=== PATIENT | male | born 1945 | race Caucasian/White ===

== ENCOUNTER 2017-01-17 07:05 | Day surgery (SDC) | payer MEDICARE ==
--- NOTE | 2017-01-21 11:05 | OR ---
ADMIT: 01/17/2017 RM/LOC: [facility] MR#: [id number] [place], [place] [id number] [address] [place] [address] Operative/Delivery Room Report SEX: M AGE: 71 : 1945 SURGERY DATE: 01/17/2017 SURGEON: Master Barrios MD PREOPERATIVE DIAGNOSIS: Umbilical hernia. POSTOPERATIVE DIAGNOSIS: Umbilical hernia. PROCEDURE: Repair of umbilical hernia with 6.4 cm Ventralex mesh. RESPIRATORY ASSISTANT: HIRAL Spears, whose assistance was necessary for tissue retraction. ANESTHESIA: General endotracheal. ESTIMATED BLOOD LOSS: 10 mL. DESCRIPTION OF PROCEDURE: The patient was taken to the operating room and placed supine on the operating room table. General anesthesia was established. The abdomen was prepped and draped in the standard surgical fashion. A curvilinear infraumbilical incision was made in the skin and carried through the subcutaneous tissue of the hernia sac. The hernia sac was carefully dissected away from the overlying umbilical skin. The sac was dissected back to the fascial margins and excised with cautery. The defect measured 1.5 cm. There was evidence of intraabdominal ascites which seemed to be of minimal quantity. Fascial margins were cleaned of overlying fatty tissue. A 6.4 cm Ventralex mesh was placed intraabdominally with good overlap of the defect. This was secured circumferentially with transfascial 0 silk suture. The defect was then also closed primarily overlying the mesh with 0 silk suture. The deep tissue of the umbilical skin was approximated to the repair with 2-0 Vicryl suture. The skin edges were approximated with 4-0 Monocryl in a subcuticular fashion and Dermabond. Local anesthetic was injected and a dressing was applied. Sponge, needle, and instrument counts were correct at the end of the case. The patient tolerated the procedure well and transferred to the recovery area in stable condition. Master Barrios MD/ lou JOB #: [id number] CC: Master Barrios, Attending Physician Rehan Tello, Family Physician
== END 2017-01-17 13:50 | disposition home or self-care (01) ==
LOC: SSS 07:05
PROC: 0WUF0JZ Supplement Abdominal Wall with Synthetic Substitute, Open Approach (ICD-10-PCS; principal; 2017-01-17)
DX: K42.9 Umbilical hernia without obstruction or gangrene (principal); J44.9 Chronic obstructive pulmonary disease, unspecified; I10 Essential (primary) hypertension; E78.5 Hyperlipidemia, unspecified; Z98.890 Other specified postprocedural states; Z79.899 Other long term (current) drug therapy; Z79.82 Long term (current) use of aspirin